=== PATIENT | male | born 2000 | race Caucasian/White ===

== ENCOUNTER 2022-01-27 06:25 | Emergency (ER) | payer OTHER ==
[2022-01-27 06:42] VITALS: BP 133/78; PULSE 76; TEMP 98.7; BMI 19.8
[2022-01-27] MEDS ORDERED: MAG HYDROX/AL HYDROX/SIMETH 30 ML UNIT-DOSE CUP PO ONE (07:15)
[2022-01-27] MEDS ORDERED: KETOROLAC TROMETHAMINE 60 MG/2 ML VIAL IM ONE (07:15)
[2022-01-27] MEDS ORDERED: LIDOCAINE 5% TOPICAL PATCH TP ONE (07:15)
[2022-01-27] MEDS ORDERED: MAG HYDROX/AL HYDROX/SIMETH 30 ML UNIT-DOSE CUP ONE (07:18)
[2022-01-27] MEDS ORDERED: KETOROLAC TROMETHAMINE 60 MG/2 ML VIAL ONE (07:18)
[2022-01-27] MEDS ORDERED: LIDOCAINE 5% TOPICAL PATCH ONE (07:19)
[2022-01-27] MEDS ORDERED: LIDOCAINE PATCH REMOVAL MC SCH (22:00)
== END 2022-01-27 08:37 | disposition home or self-care (01) ==
LOC: FER 06:25
PROC: 3E023GC Introduction of Other Therapeutic Substance into Muscle, Percutaneous Approach (ICD-10-PCS; principal; 2022-01-27)
DX: M54.50 Low back pain, unspecified (principal)
CPT/HCPCS: 81003; 99284-25